=== PATIENT | female | born 1955 | race Two or more races ===

== ENCOUNTER 2019-05-30 19:26 | Emergency (ER) | payer SELFPAY ==
[~2019-05-30] VITALS: Ht 152.4 cm; Wt 90.7 kg
[2019-05-30] MEDS ORDERED: NKM (19:32)
--- NOTE | 2019-05-30 19:44 | NUR ---
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 pt reports it is sharp pressure feeling like as if someones pulling it. no wound nor deformity nor contusion noted. cms intact BUE, active ROM, will cont monitor.
[2019-05-30 19:45] VITALS: BP 144/91
--- NOTE | 2019-05-30 20:06 | Emergency Room Report ---
History of Present Illness General Chief Complaint: Pain Source: Patient Present Illness HPI 64-year-old female presents to the emergency department complaining of persistent and progressive bilateral wrist pain with intermittent swelling and dry hand rash 7 months. Patient reports 7 out of 10 severity pain and swelling bilaterally to the wrists over the last week. Denies trauma or fall she denies history of carpal tunnel syndrome she denies repetitive use of her hands. Denies significant past medical history and is not currently taking any medications. Also reports occasional pain and swelling to the musculature of the forearms bilaterally. Patient reports moderate stiffness upon awakening each morning. Denies numbness tingling or loss of sensation or gross motor movements of the extremities, incontinence of bowel or bladder. Denies CP, Palpitations, LOC, AMS, dizziness, Changes in Vision, weakness or a sudden severe headache. Denies hx of autoimmune disorders. Allergies: Coded Allergies: No Known Allergies (Unverified , 05/30/19) Patient History Past Medical History: see triage record Past Surgical History: none Pertinent Family History: none Now: No Reviewed Nursing Documentation: PMH: Agreed; PSxH: Agreed Nursing Documentation-PMH Past Medical History: No Stated History Review of Systems All Other Systems: negative except mentioned in HPI Physical Exam Vital Signs Date Time Temp Pulse Resp B/P (MAP) Pulse Ox O2 Delivery O2 Flow Rate FiO2 05/30/19 19:28 98.2 81 16 144/91 (108) 95 Room Air Sp02 EP Interpretation: reviewed, normal General Appearance: no apparent distress, alert, GCS 15, non-toxic Head: normocephalic, atraumatic Eyes: bilateral eye normal inspection, bilateral eye PERRL ENT: hearing grossly normal, normal pharynx, normal voice Neck: full range of motion, other - no stridor Respiratory: chest non-tender, lungs clear, normal breath sounds, no wheezing, speaking full sentences Cardiovascular #1: regular rate, rhythm, no edema, normal capillary refill Cardiovascular #2: 2+ radial (R), 2+ radial (L) Musculoskeletal: back normal, gait/station normal, normal range of motion, tender - TTP to the brachioradialis muscles bilaterally and to the wrists bilaterally, no obvious deformities, mild swelling noted. NO erythema or warmth. FROM Neurologic: alert, oriented x3, responsive, motor strength/tone normal, sensory intact, speech normal, grossly normal Psychiatric: judgement/insight normal Skin: rash - hyperpigmented dryness to the dorsum of the hands bilaterally, no lesions, blisters or vessicles. no excoriations. Lymphatic: no adenopathy Medical Decision Making PA Attestation Dr. Talbot is my supervising Physician whom patient management has been discussed with. Diagnostic Impression: Primary Impression: Tendonitis of both wrists Additional Impressions: Forearm tendonitis Rash and nonspecific skin eruption ER Course 64-year-old female presents to the emergency department complaining of persistent and progressive bilateral wrist pain with intermittent swelling and dry hand rash 7 months. Patient reports 7 out of 10 severity pain and swelling bilaterally to the wrists over the last week. Denies trauma or fall she denies history of carpal tunnel syndrome she denies repetitive use of her hands. Denies significant past medical history and is not currently taking any medications. Also reports occasional pain and swelling to the musculature of the forearms bilaterally. Patient reports moderate stiffness upon awakening each morning. Denies numbness tingling or loss of sensation or gross motor movements of the extremities, incontinence of bowel or bladder. Denies CP, Palpitations, LOC, AMS, dizziness, Changes in Vision, weakness or a sudden severe headache. Denies hx of autoimmune disorders. Ddx considered but are not limited to Fracture, dislocation, contusion, Sprain/ Strain/Spasm, Rheumatoid Arthritis, rheumatological or endocrine condition Vital signs: are WNL, pt. is afebrile H&PE are most consistent with tendonitis and nonspecific skin changes to the bilateral hands possible representing a rheumatological condition. ORDERS: - X-rays not indicated at this time no suspicion for acute fractures or dislocations. ED INTERVENTIONS: - Bilateral wrist Splints applied by lead cytogenetic technologist. Pt. remains neurovascularly intact. -I do not identify an emergent condition at this time. With current presentation , pt. is stable for close outpatient follow up and conservative treatment. D/ w pt. to return promptly to ED with worsening or new symptoms.- Pt. verbalizes' understanding and agreement with proposed treatment plan.proposed treatment plan. DISCHARGE: At this time pt. is stable for d/c to home. Will provide printed patient care instructions, and any necessary prescriptions. Care plan and follow up instructions have been discussed with the patient prior to discharge. Last Vital Signs Date Time Temp Pulse Resp B/P (MAP) Pulse Ox O2 Delivery O2 Flow Rate FiO2 7/9/19 19:45 98.2 41 16 144/91 98 Room Air Disposition: HOME, SELF-CARE Condition: Stable Scripts Hydrocortisone 2% Cream (ANTI-ITCH 2% CREAM) Y Cr 28 GM TP BID for rash, #28 GM 2 Refills Prov: Candice Pruitt 05/30/19 Naproxen* (NAPROXEN*) 500 Mg Tablet.dr 500 MG ORAL TWICE A DAY for 10 Days, #20 TAB Prov: Candice Pruitt 05/30/19 Referrals: [facility] + [facility] Patient Instructions: Joint Pain, [id number], Rash, Rheumatoid Arthritis, [id number] Additional Instructions: Take medications as directed. Follow up with a Primary Care Provider in 3-5 days, even if your symptoms have resolved. RHEUMATOLOGY and DERMATOLOGY REFERRAL --Please review list of primary care clinics, if you do not already have a primary care provider Return sooner to ED if new symptoms occur, or current symptoms become worse. - Please note that this Emergency Department Report was dictated using [employer] machine operator technology software, occasionally this can lead to erroneous entry secondary to interpretation by the dictation equipment. Candice Pruitt May 30, 2019 20:06
[2019-05-30] MEDS ORDERED: NAPROXEN500 M1 ORAL (20:08)
[2019-05-30] MEDS ORDERED: ANTI-ITCH28 G1 TP (20:08)
[2019-05-30 20:25] VITALS: BP 135/76
--- NOTE | 2019-05-30 20:25 | NUR ---
ED Nurse Note: pt cleared to be d/c per ER provider, pt discharge and aftercare instruction provided w/ prescription, pt education done via discussion and handout, pt advised to follow up with pcp or return to ed if changes in condition, pt verbalized understanding and agrees with plan, pt provided w/ list of clinics, pt ambulatory w/ steady gait, left w/ all belongings, accompanied by sister.
[2019-05-30] MEDS ORDERED: Lidocaine 1% 10mg/ml/EPI 0.01mg/ml 20ml INJ ONE (21:14)
== END 2019-05-30 20:25 | disposition home or self-care (01) ==
LOC: EMR 19:48
DX: M77.9 Enthesopathy, unspecified (principal); R21 Rash and other nonspecific skin eruption; M25.532 Pain in left wrist; M25.531 Pain in right wrist
CPT/HCPCS: 29125; 99283